=== PATIENT | male | born 1950 | race Caucasian/White ===

== ENCOUNTER 2020-01-22 07:43 | Outpatient (CLI) | payer MEDICARE ==
[~2020-01-22] VITALS: Ht 198.1 cm; Wt 134.0 kg
[2020-01-22] MEDS ORDERED: regadenoson 0.4mg/5ml syringe IV PRN (08:30)
[2020-01-22] MEDS ORDERED: normal saline 500ml IV soln 500 ML IV ONE (08:35)
[2020-01-22] MEDS ORDERED: aminophylline 250mg/10ml inj. IV PRN (08:35)
[2020-01-22] MEDS ORDERED: nitroGLYCERIN 0.4mg SUBLingual tab SL PRN (08:35)
[2020-01-22] MEDS ORDERED: regadenoson 0.4mg/5ml syringe IV ONE (08:35)
[2020-01-22 09:25] VITALS: BP 163/97
[2020-01-22 09:27] VITALS: BP 169/94
[2020-01-22 09:29] VITALS: BP 162/98
[2020-01-22 09:30] VITALS: BP 168/95
[2020-01-22 09:31] VITALS: BP 146/93
[2020-01-22 09:32] VITALS: BP 150/87
== END 2020-01-22 23:59 | disposition home or self-care (01) ==
LOC: RAD 07:43
PROVIDERS: ATTEND Internal Medicine Cardiovascular Disease
DX: I71.4 Abdominal aortic aneurysm, without rupture (principal); I73.9 Peripheral vascular disease, unspecified; G35 Multiple sclerosis; Z01.810 Encounter for preprocedural cardiovascular examination
CPT/HCPCS: 78452; 93017; A9500; J0280; J2785; J7040